=== PATIENT | female | born 1995 | race African-American/Black ===

== ENCOUNTER 2018-09-24 03:42 | Observation (INO) | payer MEDICAID ==
[~2018-09-24] VITALS: Ht 157.5 cm; Wt 78.5 kg
[2018-09-24] MEDS ORDERED: PNV1TABL50 PO (04:03)
[2018-09-24] MEDS ORDERED: CALC-1042 PO (04:03)
[2018-09-24] MEDS ORDERED: FOLI0.4T2 PO (04:03)
[2018-09-24] MEDS ORDERED: SODIUM CHLORIDE 0.9% 1,000 ML IV SCH (04:15)
[2018-09-24] MEDS ORDERED: ONDANSETRON HCL 4MG/2ML INJ IV PRN (04:15)
[2018-09-24 05:30] LABS: CLARITY URINE CLEAR (CLEAR); COLOR URINE YELLOW (YELLOW); KETONES URINE 2+ (NEGATIVE); LEUKOCYTE ESTERASE URINE NEGATIVE (NEGATIVE); NITRITE URINE NEGATIVE (NEGATIVE); OCCULT BLOOD URINE 2+ (NEGATIVE); PH URINE 8.5 (4.5-8.0); PROTEIN URINE TRACE (NEGATIVE)
== END 2018-09-24 07:55 | disposition home or self-care (01) ==
LOC: 8 EST LDRP 03:42 → 8EST 04:05 → 8 EST A/PP 04:44
PROVIDERS: ADMIT Specialist; ATTEND Specialist
DX: O21.2 Late vomiting of pregnancy (principal); Z3A.30 30 weeks gestation of pregnancy
CPT/HCPCS: 36415; 80051; 81003; 99281; G0378; J2405; 96360; 96361